=== PATIENT | male | born 1975 | race Caucasian/White ===

== ENCOUNTER 2023-03-20 07:09 | Emergency (ER) | payer BC, OTHER ==
[2023-03-20] MEDS ORDERED: Dexamethasone 4 MG TAB ONE (07:41)
[2023-03-20 08:41] LABS: SARS-CoV-2 NAA Rapid Test Not Detected (NotDetected)
== END 2023-03-20 07:43 | disposition home or self-care (01) ==
LOC: CSHERS 07:09
DX: J02.9 Acute pharyngitis, unspecified (principal); F17.290 Nicotine dependence, other tobacco product, uncomplicated; Z20.822 Contact with and (suspected) exposure to COVID-19
CPT/HCPCS: 99283; J8540